=== PATIENT | female | born 1990 | race Hispanic/Latino ===

== ENCOUNTER 2022-11-22 18:22 | Emergency (ER) | payer MEDICARE ==
[~2022-11-22] VITALS: Ht 170.2 cm; Wt 110.8 kg
[2022-11-22] MEDS ORDERED: SODIUM CHLORIDE 0.9% 1000ML 1,000 ML ONE (18:52)
[2022-11-22 18:59] LABS: BASOPHILS # (AUTO) 0.1 (0.0-0.1); BASOPHILS % 0.4 % (0.0-1.0); EOSINOPHILS # (AUTO) 0.1 (0.0-0.4); EOSINOPHILS % 0.3 % (0.0-6.0); HEMATOCRIT 40.5 % (34.2-44.1); HEMOGLOBIN 14.8 g/dL (12.0-16.0); LYMPHOCYTES # (AUTO) 2.3 (1.0-3.2); LYMPHOCYTES % 14.1 % (18.0-39.1); MEAN CORPUSCULAR HEMOGLOBIN 31.2 pg (28-32); MEAN CORPUSCULAR HGB CONC 36.5 g/dL (31-35); MEAN CORPUSCULAR VOLUME 85.4 fL (81-99); MONOCYTES # (AUTO) 0.8 (0.2-0.8); MONOCYTES % 4.6 % (4.4-11.3); NEUTROPHILS # (AUTO) 13.3 (2.1-6.9); NEUTROPHILS % 80.1 % (38.7-80.0); PLATELET COUNT 262 x10e3/uL (140-360); RED BLOOD COUNT 4.74 x10e6/uL (3.6-5.1)
[2022-11-22] MEDS ORDERED: SODIUM CHLORIDE 0.9% 1000ML 1,000 ML IV ONE (19:00)
[2022-11-22 19:21] LABS: ALANINE AMINOTRANSFERASE 16 IU/L (0-55); ALBUMIN 4.1 g/dL (3.5-5.0); ALKALINE PHOSPHATASE 69 IU/L (40-150); ANION GAP 14.6 mmol/L (8-16); BLOOD UREA NITROGEN 11 mg/dL (7-26); BUN/CREATININE RATIO 14 (6-25); CARBON DIOXIDE 21 mmol/L (22-29); CHLORIDE 105 mmol/L (98-107); CREATINE KINASE 68 IU/L (29-168); CREATININE, SERUM 0.79 mg/dL (0.57-1.11); GLUCOSE 95 mg/dL (74-118); POTASSIUM 3.6 mmol/L (3.5-5.1); SODIUM 137 mmol/L (136-145)
[2022-11-22] MEDS ORDERED: METOPROLOL TARTRATE 50 MG TAB ONE (20:04)
[2022-11-22] MEDS ORDERED: SODIUM CHLORIDE 0.9% 1000ML 1,000 ML IV SCH (20:15)
[2022-11-22] MEDS ORDERED: ASPIRIN 81 MG CHEW TAB PO ONE (20:15)
[2022-11-22] MEDS ORDERED: METOPROLOL SUCCINATE 50 MG TAB XL PO ONE (20:15)
[2022-11-22 20:44] VITALS: O2SAT 98
[2022-11-22] MEDS ORDERED: ASPIRIN 81 MG CHEW TAB ONE (20:48)
[2022-11-23] MEDS ORDERED: METOPROLOL TARTRATE 50 MG TAB PO SCH (09:00)
== END 2022-11-22 22:17 | disposition left against medical advice (07) ==
LOC: FSED 18:28 → ERHOLD 20:09 → UNDOADMOB 20:09 → FSED 22:17
DX: R00.2 Palpitations (principal); R00.0 Tachycardia, unspecified; D72.829 Elevated white blood cell count, unspecified; R03.0 Elevated blood-pressure reading, without diagnosis of hypertension; R94.31 Abnormal electrocardiogram [ECG] [EKG]
CPT/HCPCS: 36415; 71045; 80053; 82550; 82553; 84443; 84484; 85025; 93005; 99283; J7030